=== PATIENT | female | born 1980 ===

== ENCOUNTER 2021-04-21 16:02 | Emergency (ER) | payer MEDICAID ==
[~2021-04-21] VITALS: Ht 162.6 cm; Wt 65.8 kg
[2021-04-21] MEDS ORDERED: ASPirin 81 mg TAB PO ONE (17:30)
[2021-04-21] MEDS ORDERED: LIDOCAINE VISCOUS 2% 15ML UD MT ONE (17:30)
[2021-04-21] MEDS ORDERED: FAMOTIDINE 20 MG TAB PO ONE (17:30)
[2021-04-21 19:06] LABS: Basophils # (auto) 0.1 10 ^3/uL (0-0.2); Basophils % (auto) 1.6 % (0.0-2.0); Eosinophils # (auto) 0.2 10 ^3/uL (0-0.8); Eosinophils % (auto) 2.2 % (0.0-7.0); Hematocrit 40.8 % (36.0-46.0); Hemoglobin 13.7 g/dL (12.2-16.2); Lymphocytes # (auto) 1.2 10 ^3/uL (0.4-5.4); Lymphocytes % (auto) 13.2 % (10.0-50.0); Mean Corpuscular Hemoglobin 29.4 pg (28.0-32.0); Mean Corpuscular Hgb Conc. 33.6 g/dL (32.0-36.0); Mean Corpuscular Volume 87.4 fL (80.0-100.0); Monocytes # (auto) 0.5 10 ^3/uL (0-1.3); Neutrophils # (auto) 6.8 10 ^3/uL (1.6-8.6); Nucleated Red Blood Cells % 0.1 %; Red Blood Cells 4.67 10^6/uL (4.0-5.20); Red Cell Distribution Width 12.6 % (11.8-14.3); White Blood Cell 8.8 10^3/uL (4.4-10.8)
[2021-04-21] MEDS ORDERED: AZITTAB PO (19:19)
[2021-04-21 19:25] VITALS: BP 103/68
[2021-04-21 19:30] LABS: Potassium 3.6 mmol/L (3.5-5.1)
[2021-04-21 19:36] LABS: Albumin 3.7 g/dL (3.4-5.0); BUN/Creatinine Ratio 8.6; Calcium 8.6 mg/dL (8.5-10.1); Magnesium 2.4 mg/dL (1.6-2.6)
[2021-04-21 19:41] LABS: Bilirubin, Total 0.3 mg/dL (0.2-1.0); Total Protein 7.3 g/dL (6.4-8.2)
== END 2021-04-21 21:43 | disposition home or self-care (01) ==
LOC: ER 16:07
DX: J18.9 Pneumonia, unspecified organism (principal); E78.5 Hyperlipidemia, unspecified; R42 Dizziness and giddiness; Z90.49 Acquired absence of other specified parts of digestive tract
CPT/HCPCS: 36415; 71046; 80053; 83735; 83880; 84484; 84702; 85025; 93005